=== PATIENT | male | born 1975 | race American Indian/Alaskan Native ===

== ENCOUNTER 2017-01-07 09:26 | Emergency (ER) | payer MEDICARE | END 2017-01-07 11:45 | disposition left against medical advice (07) | LOC: ED 09:26 | DX: N49.2 Inflammatory disorders of scrotum (principal); Z53.21 Procedure and treatment not carried out due to patient leaving prior to being seen by health care provider ==

== ENCOUNTER 2019-08-03 15:06 | Observation (INO) | payer MEDICARE ==
[2019-08-03] MEDS ORDERED: ASPIRIN 325 MG TAB PO ONE (15:10)
[2019-08-03 15:58] LABS: Eosinophils # (Auto) 0.1 K/mm3 (0.0-0.4); Eosinophils % (Auto) 1.9 % (0.0-4.3); Hematocrit 34.2 % (35.5-45.6); Hemoglobin 11.3 gm/dl (11.8-15.2); Lymphocytes # (Auto) 1.4 K/mm3 (1.2-5.4); Lymphocytes % (Auto) 30.5 % (13.4-35.0); Mean Corpuscular HGB Conc 33 % (32-34); Mean Corpuscular Volume 103 fl (84-94); Monocytes # (Auto) 0.4 K/mm3 (0.0-0.8); Monocytes % (Auto) 8.1 % (0.0-7.3); Platelet Count 160 K/mm3 (140-440); Red Blood Count 3.31 M/mm3 (3.65-5.03); Red Cell Distribution Width 14.1 % (13.2-15.2)
[2019-08-03 16:14] LABS: Calcium 7.5 mg/dL (8.4-10.2)
--- NOTE | 2019-08-03 16:15 | XRay Report ---
CHEST 2 VIEWS INDICATION / CLINICAL INFORMATION: Acute chest pain beginning this morning. Hyperkalemia. COMPARISON: 2 views of the chest from 08/23/2016. FINDINGS: SUPPORT DEVICES: Interval single lead left subcutaneous ICD placement. HEART / MEDIASTINUM: Stable. LUNGS / PLEURA: No significant pulmonary or pleural abnormality. No pneumothorax. ADDITIONAL FINDINGS: No significant additional findings. IMPRESSION: 1. No acute abnormality of the chest. 2. Stable cardiomegaly. Signer Name: Jason Rogers MD Signed: 08/03/2019 4:11 PM Workstation Name: [id number]
[2019-08-03] MEDS ORDERED: SODIUM BICARB 8.4% 50 MEQ/50 ML SYRINGE IV ONE (16:28)
[2019-08-03] MEDS ORDERED: ALBUTEROL 2.5 MG/3 ML NEBU IH ONE (16:28)
[2019-08-03] MEDS ORDERED: CALCIUM GLUCONATE 1,000 MG in SODIUM CHLORIDE 0.9% 100 ML IV ONE (16:28)
[2019-08-03] MEDS ORDERED: INSULIN REGULAR, HUMAN 100 UNITS/1 ML IV ONE (16:31)
[2019-08-03] MEDS ORDERED: DEXTROSE 50% IN WATER (25GM) 50 ML SYRINGE IV ONE (16:31)
[2019-08-03 16:41] LABS: Chol/HDL Ratio 3.5 %
--- NOTE | 2019-08-03 17:22 | Emergency Department Report ---
ED Chest Pain HPI - General Chief Complaint: Chest Pain Stated Complaint: CP/NUMB Time Seen by Provider: 08/03/19 16:20 Source: patient, old records reviewed (Patient had a cardiac cath in August 24, 2016 showing marked dilated left ventricle with ejection fraction 20% with severe diffuse hypokinesis with normal coronary anatomy) Mode of arrival: Ambulatory Limitations: No Limitations - History of Present Illness Initial Comments: 43-year-old male with a past medical history of CHF, hypertension, nonischemic cardiomyopathy, and chronic bilateral shoulder pain presents to the hospital complains of hyperkalemia and chest pain. Patient receives dialysis Tuesday, Tuesday, and Tuesday. Patient did receive dialysis 2 days ago as scheduled. His blood was drawn. On his way to dialysis today he was called and told that his potassium was greater than 8 from his last blood draw and he needs to go to the hospital. Patient states he became more aware of his ongoing intermittent left-sided aching and sharp chest pain that has been happening throughout the day after being notified of his hyperkalemia. He has not missed any of his dialysis sessions. Patient has history of chronic bilateral shoulder pain and thought that his pain was radiating from there. Pain improves at times with rest and deep breathing. Patient denies shortness of breath, nausea, vomiting, or diaphoresis. His director experimental medicine is Dr. Price Severity scale (0 -10): 1 - Related Data Previous Rx's Medication Instructions Recorded Last Taken Type Calcium Acetate 2 cap PO BIDAC #120 capsule 08/25/16 Unknown Rx Folic Acid/Vit B Comp W-C [Renal 1 cap PO QDAY #30 capsule 08/25/16 Unknown Rx Caps] Losartan [Cozaar] 50 mg PO QDAY #30 tablet 08/25/16 Unknown Rx carvediloL [Coreg] 12.5 mg PO BID #60 tablet 08/25/16 Unknown Rx traMADoL [Ultram 50 MG tab] 50 mg PO Q6H PRN #15 tablet 08/25/16 Unknown Rx Allergies Allergy/AdvReac Type Severity Reaction Status Date / Time No Known Allergies Allergy Verified 07/18/14 07:47 Heart Score - HEART Score History: Slightly suspicious EKG: Non-specific Age: 45-65 Risk factors: 1-2 risk factors Troponin: 1-3x normal limit HEART Score: 4 ED Review of Systems ROS: Stated complaint: CP/NUMB Other details as noted in HPI Comment: All other systems reviewed and negative ED Past Medical Hx - Past Medical History Previous Medical History?: Yes Hx Hypertension: Yes Hx Heart Attack/AMI: No Hx Congestive Heart Failure: Yes (Nonischemic cardiomyopathy) Hx Diabetes: No Hx Deep Vein Thrombosis: No Hx Liver Disease: No Hx Renal Disease: Yes (HD [id number]) Hx Sickle Cell Disease: No Hx Arthritis: No Hx Seizures: No Hx Kidney Stones: No Hx Asthma: No Hx COPD: No Hx Dementia: No Hx HIV: No Additional medical history: Cardiac cath August 24, 2016: Dilated left ventricle with ejection fraction 20% with severe diffuse hypokinesis. Normal coronary anatomy - Surgical History Hx Coronary Stent: No Hx Open Heart Surgery: No Hx Pacemaker: No Hx Internal Defibrillator: No Hx Cholecystectomy: No Hx Appendectomy: No Hx Breast Surgery: No Additional Surgical History: PermaCath placement to left groin. right thigh graft - Social History Smoking Status: Current Every Day Smoker Substance Use Type: None - Medications Home Medications: Home Medications Medication Instructions Recorded Confirmed Last Taken Type Calcium Acetate 2 cap PO BIDAC #120 capsule 08/25/16 Unknown Rx Folic Acid/Vit B Comp W-C [Renal 1 cap PO QDAY #30 capsule 08/25/16 Unknown Rx Caps] Losartan [Cozaar] 50 mg PO QDAY #30 tablet 08/25/16 Unknown Rx carvediloL [Coreg] 12.5 mg PO BID #60 tablet 08/25/16 Unknown Rx traMADoL [Ultram 50 MG tab] 50 mg PO Q6H PRN #15 tablet 08/25/16 Unknown Rx ED Physical Exam - General Limitations: No Limitations - Other Other exam information: General: No acute distress Head: Atraumatic Eyes: normal appearance ENT: Moist mucous membranes Neck: Normal appearance, no midline tenderness Chest: Clear to auscultation bilaterally CV: Regular rate and rhythm Abdomen: Soft, normal bowel sounds, nontender, nondistended, no rebound or guarding Back: Normal inspection Extremity: Normal inspection, full range of motion Neuro: Alert O x 3, no facial asymmetry, speech clear, no gross motor sensory deficit Psych: Appropriate behavior Skin: No rash ED Course Vital Signs 08/03/19 08/03/19 08/03/19 15:08 16:41 16:45 Temperature 97.9 F 98.3 F Pulse Rate 80 74 Pulse Rate [ Bilateral] Respiratory 18 16 16 Rate Respiratory Rate [Bilateral ] Blood Pressure 109/73 Blood Pressure 90/53 [Right] O2 Sat by Pulse 99 99 99 Oximetry 08/03/19 08/03/19 17:06 17:46 Temperature Pulse Rate Pulse Rate [ 92 H Bilateral] Respiratory 18 Rate Respiratory 18 Rate [Bilateral ] Blood Pressure Blood Pressure [Right] O2 Sat by Pulse Oximetry - Consultations Consultation #1: 08/03/19 17:11 Case discussed with director experimental medicine Dr. Price who will arrange for dialysis tonight SILVIA score - Silvia Score Age > 65: (0) No Aspirin use within the Past 7 Days: (0) No 3 or more CAD Risk Factors: (0) No 2 or more Angina events in past 24 hrs: (0) No Known CAD with more than 50% Stenosis: (0) No Elevated Cardiac Markers: (1) Yes ST Deviation Greater than 0.5mm: (0) No SILVIA Score: 1 ED Medical Decision Making - Lab Data Result diagrams: 08/03/19 15:25 08/03/19 15:25 Lab Results 08/03/19 08/03/19 Range/Units 15:25 15:25 WBC 4.6 (4.5-11.0) K/mm3 RBC 3.31 L (3.65-5.03) M/mm3 Hgb 11.3 L (11.8-15.2) gm/dl Hct 34.2 L (35.5-45.6) % MCV 103 H (84-94) fl MCH 34 H (28-32) pg MCHC 33 (32-34) % RDW 14.1 (13.2-15.2) % Plt Count 160 (140-440) K/mm3 Lymph % (Auto) 30.5 (13.4-35.0) % [place] % (Auto) 8.1 H (0.0-7.3) % Eos % (Auto) 1.9 (0.0-4.3) % Baso % (Auto) 1.0 (0.0-1.8) % Lymph # 1.4 (1.2-5.4) K/mm3 [place] # 0.4 (0.0-0.8) K/mm3 Eos # 0.1 (0.0-0.4) K/mm3 Baso # 0.0 (0.0-0.1) K/mm3 Seg Neutrophils % 58.5 (40.0-70.0) % Seg Neutrophils # 2.7 (1.8-7.7) K/mm3 Sodium 140 (137-145) mmol/L Potassium 6.4 H* (3.6-5.0) mmol/L Chloride 96.0 L (98-107) mmol/L Carbon Dioxide 21 L (22-30) mmol/L Anion Gap 29 mmol/L BUN 61 H (9-20) mg/dL Creatinine 18.6 H (0.8-1.5) mg/dL Estimated GFR 3 ml/min BUN/Creatinine Ratio 3 % Glucose 81 (75-100) mg/dL Calcium 7.5 L (8.4-10.2) mg/dL Troponin T 0.068 H (0.00-0.029) ng/mL Triglycerides 187 H (2-149) mg/dL Cholesterol 193 (50-199) mg/dL LDL Cholesterol Direct 127 (50-130) mg/dL HDL Cholesterol 55 (40-59) mg/dL Cholesterol/HDL Ratio 3.50 % - EKG Data -: EKG Interpreted by Me (Right bundle branch block) EKG shows normal: sinus rhythm, ST-T waves (No ST elevation, no peak T waves) Rate: normal (66) - EKG Data When compared to previous EKG there are: no significant change - Radiology Data Radiology results: report reviewed CHEST 2 VIEWS INDICATION / CLINICAL INFORMATION: Acute chest pain beginning this morning. Hyperkalemia. COMPARISON: 2 views of the chest from 08/23/2016. FINDING S: SUPPORT DEVICES: Interval single lead left subcutaneous ICD placement. HEART / MEDIASTINUM: Stable. LUNGS / PLEURA: No significant pulmonary or pleural abnormality. No pneumothorax. ADDITIONAL FINDINGS: No significant additional findings. IMPRESSION: 1. No acute abnormality of the chest. 2. Stable cardiomegaly. - Medical Decision Making Patient presents to the hospital hyperkalemia and complaints of chest pain. Low suspicion for CAD given negative cardiac cath in 2017 and atypical symptoms. Elevated troponin noted, patient has chronically elevated troponin secondary to renal sufficiency. Repeat troponin pending at disposition. Aspirin ordered. Patient requested tramadol for chronic pain. Patient has hyperkalemia without acute EKG changes but missed his dialysis session today. He was provided medications for hyperkalemia with exception of Kayexalate and Lasix and Dr Price to arrange for dialysis tonight repeat trop stable. - Differential Diagnosis Hyperkalemia, lab error, muscle skeletal pain, MS Critical Care Time: No Critical care attestation.: If time is entered above; I have spent that time in minutes in the direct care of this critically ill patient, excluding procedure time. ED Disposition Clinical Impression: Hyperkalemia, End-stage renal disease needing dialysis, Chest pain Disposition: OP ADMIT IP TO THIS HOSP Is pt being admited?: Yes Condition: Stable Time of Disposition: 17:22 (Dr echavarria/hosp)
[2019-08-03] MEDS ORDERED: ACETAMINOPHEN 325 MG TAB PO ONE (17:33)
[2019-08-03] MEDS ORDERED: traMADol 50 MG TAB PO ONE (17:35)
[2019-08-03] MEDS ORDERED: diphenhydrAMINE 50 MG/ML VIAL IV PRN (18:55)
[2019-08-03] MEDS ORDERED: SODIUM CHLORIDE 0.9% 100 ML IV PRN (18:55)
[2019-08-03] MEDS ORDERED: diphenhydrAMINE 50 MG/ML VIAL ONE (19:00)
[2019-08-03] MEDS ORDERED: SODIUM CHLORIDE*PRIMING MACHINE ONLY FOR DIALYSIS MC ONE (19:01)
[2019-08-03 19:07] LABS: Hepatitis B Surface Antigen Non-Reactive (Negative); Hepatitis C Virus Antibody Non-Reactive (NonReactive)
[2019-08-03 22:47] VITALS: BP 113/62
== END 2019-08-03 22:47 | disposition left against medical advice (07) ==
LOC: ED 15:06 → 4A 17:24
PROVIDERS: ADMIT Internal Medicine; ATTEND Internal Medicine
DX: R07.89 Other chest pain (principal); E87.5 Hyperkalemia; I13.2 Hypertensive heart and chronic kidney disease with heart failure and with stage 5 chronic kidney disease, or end stage renal disease; N18.6 End stage renal disease; I50.9 Heart failure, unspecified; I42.8 Other cardiomyopathies; G89.29 Other chronic pain; M25.511 Pain in right shoulder; M25.512 Pain in left shoulder; Z99.2 Dependence on renal dialysis; Z95.828 Presence of other vascular implants and grafts; Z79.899 Other long term (current) drug therapy
CPT/HCPCS: 36415; 71046; 80048; 80061; 80074; 84484; 85025; 94644; 96374; 96375; 99284; G0257; G0378; J0610; J1200; J7030; J1815

== ENCOUNTER 2020-07-11 08:20 | Day surgery (SDC) | payer MEDICARE ==
[2020-07-11] MEDS ORDERED: SODIUM CHLORIDE 0.9% 500 ML 500 ML IV SCH (09:00)
[2020-07-11 09:28] LABS: Basophils % (Auto) 0.6 % (0.0-1.8); Eosinophils # (Auto) 0.1 K/mm3 (0.0-0.4); Eosinophils % (Auto) 1.5 % (0.0-4.3); Hematocrit 29.8 % (35.5-45.6); Hemoglobin 10.1 gm/dl (11.8-15.2); Lymphocytes % (Auto) 18.8 % (13.4-35.0); Mean Corpuscular HGB Conc 34 % (32-34); Mean Corpuscular Volume 101 fl (84-94); Monocytes # (Auto) 0.4 K/mm3 (0.0-0.8); Monocytes % (Auto) 8.3 % (0.0-7.3); Platelet Count 152 K/mm3 (140-440); Red Blood Count 2.95 M/mm3 (3.65-5.03); Red Cell Distribution Width 13.1 % (13.2-15.2)
[2020-07-11 09:45] LABS: INR 1.03 (0.87-1.13)
[2020-07-11 09:46] LABS: Partial Thromboplastin Time 30.3 Sec. (24.2-36.6)
[2020-07-11 09:49] LABS: Calcium 8.7 mg/dL (8.4-10.2)
[2020-07-11] MEDS ORDERED: HYDROmorphone 1 MG/1 ML INJ IV ONE (11:42)
[2020-07-11] MEDS ORDERED: ceFAZolin/Water 2 GM/20 ML 2 GM/20 ML SYRINGE IV ONE (13:27)
[2020-07-11] MEDS ORDERED: HEPARIN 10,000 UNITS/10 ML VIAL ONE (13:27)
[2020-07-11] MEDS ORDERED: LIDOCAINE (2%) 20 MG/1 ML VIAL 20 ML MDV INFILTRATI ONE (13:33)
[2020-07-11] MEDS ORDERED: SODIUM CHLORIDE 0.9% 0 ML ONE (13:40)
[2020-07-11] MEDS: fentaNYL 100 MCG/2 ML INJ ONE ×2 (13:45→13:51)
[2020-07-11] MEDS: MIDAZOLAM 2 MG/2 ML INJ ONE ×2 (13:46→13:52)
[2020-07-11] MEDS ORDERED: HEPARIN/NS 5000 UNIT/500ML 500 ML IR ONE (13:46)
[2020-07-11] MEDS ORDERED: WATER FOR INJ Sterile (PF) 10 ML ONE (13:54)
[2020-07-11] MEDS ORDERED: ALTEPLASE 2 MG INJ ONE (13:56)
[2020-07-11] MEDS ORDERED: HYDROmorphone 1 MG/1 ML INJ ONE (14:01)
[2020-07-11] MEDS ORDERED: diphenhydrAMINE 50 MG/ML VIAL ONE (14:01)
--- NOTE | 2020-07-11 14:25 | Post Operative Note ---
Date of procedure: 07/11/20 Pre-op diagnosis: ESRD Post-op diagnosis: same Findings: 90% in-stent re-stenosis of the venous anastomosis with thrombosed av graft, no central venous stenosis and no stenosis at the arterial anastomosis Procedure: 1. Right Lower Extremity Percutaneous AV Graft Thrombectomy Anesthesia: MAC, local Surgeon: OMI CHERRY Estimated blood loss: minimal Pathology: none Condition: stable Disposition: observation
--- NOTE | 2020-07-11 14:27 | Short Stay Summary ---
Short Stay Documentation Date of service: 07/11/20 - History H&P: dictated Past Medical History: ESRD - Allergies and Medications Current Medications: Allergies lisinopril Allergy (Verified 07/11/20 08:51) Swelling Home Medications Medication Instructions Recorded Confirmed Last Taken Type Calcium Acetate 2 cap PO BIDAC #120 capsule 08/25/16 07/11/20 07/10/20 Rx 2 caps Folic Acid/Vit B Comp W-C [Renal 1 cap PO QDAY #30 capsule 08/25/16 07/11/20 07/10/20 Rx Caps] 1 cap traMADoL [Ultram 50 MG tab] 50 mg PO Q6H PRN #15 tablet 08/25/16 07/11/20 06/12/20 Rx Oxycodone HCl/Acetaminophen 1 tab PO DAILY 07/11/20 07/11/20 06/12/20 History [Percocet 2.5/325 mg] 1 Active Medications Sodium Chloride (Nacl 0.9% 500 Ml) 500 mls @ 50 mls/hr IV DIRECT JULIUS - Physical exam General appearance: no acute distress Lungs: Normal air movement Heart: Regular rate Extremities: no ischemia - Hospital course Hospital course: the patient was taken to the laboratory engineer and had a right leg av graft thrombectomy performed. please refer to the operative note concerning details of the procedure. the patient tolerated the procedure well and was discharged home in stable condition. - Disposition Condition at discharge: Stable Disposition: DC-[id number] TO HOME OR SELFCARE Short Stay Discharge Plan Follow up with: DANICA ARNDT MD [Primary Care Provider] - 7 Days
[2020-07-11 16:34] VITALS: BP 114/60
--- NOTE | 2020-07-11 17:13 | Operative Report ---
DATE OF SURGERY: 07/11/2020 STAFF SURGEON: Delbert Morales MD PREOPERATIVE DIAGNOSIS: End-stage renal disease with thrombosed right lower extremity arteriovenous graft. POSTOPERATIVE DIAGNOSIS: End-stage renal disease with thrombosed right lower extremity arteriovenous graft. PROCEDURE PERFORMED: Right lower extremity percutaneous AV graft thrombectomy. COMPLICATIONS: None. ESTIMATED BLOOD LOSS: Less than 10 mL. ANESTHESIA: Local MAC. ANGIOGRAPHY FINDINGS: There was a 90% in-stent restenosis at the venous anastomosis with a thrombosed loop AV graft. There was no central venous stenosis and no stenosis noted at the arterial anastomosis. INDICATIONS FOR PROCEDURE: This is a 44-year-old gentleman with end-stage renal disease on hemodialysis via right loop AV graft, who presented with a thrombosed AV graft, in need of a thrombectomy for salvage and to resume dialysis. The patient was then explained out the risks, benefits and alternative of procedure, expressed understanding and wished to proceed. DESCRIPTION OF PROCEDURE: After appropriate consent was obtained, the patient was brought back to the [facility] and placed on the table in a supine position. The right lower extremity was prepped and draped in usual sterile fashion with ChloraPrep. Appropriate timeout was performed indicating correct patient, procedure, and site of the procedure. I then began the intervention by obtaining percutaneous access of the AV graft using a micropuncture technique towards the venous anastomosis. The micropuncture needle was then exchanged for a micropuncture sheath using Seldinger technique. This was then upsized to a short 7-[place] sheath over a stiff J wire. We then proceeded to place an angled catheter and a Bentson wire towards the inferior vena cava. Then, the wire was removed and while pulling the catheter back, contrast was infused through the catheter, demonstrated the findings noted above. The Bentson wire was readvanced into the central venous system and the catheter was advanced over the wire. We then proceeded to place 2 mg of TPA within the graft and then the basket was advanced back into the inferior vena cava. We then proceeded to obtain percutaneous access with a second access using micropuncture technique of the AV graft towards the arterial anastomosis using a micropuncture technique. Once we obtained access, the needle was exchanged for a micropuncture sheath using Seldinger technique. This was then upsized to a second 7-[place] sheath over a stiff J wire. We then proceeded to place a Glidewire and angled catheter into the right external iliac artery. The wire was removed and a diagnostic angiogram was performed, which demonstrated the findings noted above. The Glidewire was readvanced into the external iliac artery. The catheter was removed and then a 5-[place] was placed over the wire. We then proceeded to perform mechanical thrombectomy of the AV graft with negative suction and with removal of significant amount of thrombus, which was discarded. This resulted in a pulsatile flow within the AV graft. We then proceeded to place a 10 x 40 mm [place] balloon, which was then advanced over the Bentson wire towards the venous anastomosis. We then proceeded to perform balloon angioplasty of the venous anastomosis in the rest of the thrombosed graft macerating the thrombus. Once that was complete, we then proceeded to perform a completion angiogram which demonstrated a patent AV graft with a less than 10% residual stenosis across the venous anastomosis. Glidewire catheter was readvanced into the external iliac artery and a diagnostic angiogram was performed that demonstrated the rest of the AV graft to be widely patent. With this, we removed all our wires, catheters and the sheaths were removed with a 2-0 nylon used to close the access site with further digital compression and appropriate dressing. The patient tolerated the procedure well, emerged from the conscious sedation and sent to recovery in stable condition. TID: [id number] RECEIPT: [id number] FRANCI/TAMARA
== END 2020-07-11 16:20 | disposition home or self-care (01) ==
LOC: CATHLABREC 08:20
PROVIDERS: ATTEND Surgery Vascular Surgery
DX: T82.868A Thrombosis due to vascular prosthetic devices, implants and grafts, initial encounter (principal); I13.2 Hypertensive heart and chronic kidney disease with heart failure and with stage 5 chronic kidney disease, or end stage renal disease; I50.22 Chronic systolic (congestive) heart failure; N18.6 End stage renal disease; D64.9 Anemia, unspecified; I45.10 Unspecified right bundle-branch block; Z94.0 Kidney transplant status; Z98.890 Other specified postprocedural states; Z80.1 Family history of malignant neoplasm of trachea, bronchus and lung; Z80.8 Family history of malignant neoplasm of other organs or systems; Z88.8 Allergy status to other drugs, medicaments and biological substances; Z79.899 Other long term (current) drug therapy; Z82.49 Family history of ischemic heart disease and other diseases of the circulatory system; Y82.8 Other medical devices associated with adverse incidents; Y92.89 Other specified places as the place of occurrence of the external cause
CPT/HCPCS: 36415; 36905; 80048; 85025; 85610; 85730; 99156; 99157; C1725; C1757; C1769; C1894; J0690; J1170; J1200; J1644; J2250; J2997; J3010; J7040; Q9967